=== PATIENT | male | born 1990 | race American Indian/Alaskan Native ===

== ENCOUNTER 2020-08-17 23:08 | Emergency (ER) | payer SELFPAY ==
[2020-08-18] MEDS ORDERED: ACETAMINOPHEN 325 MG TAB PO ONE (10:05)
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
[2020-08-18 10:25] VITALS: BP 128/70
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
== END 2020-08-18 11:24 | disposition home or self-care (01) ==
LOC: ED 23:08
DX: S00.83XA Contusion of other part of head, initial encounter (principal); Z98.890 Other specified postprocedural states; X58.XXXA Exposure to other specified factors, initial encounter; Y93.89 Activity, other specified; Y92.89 Other specified places as the place of occurrence of the external cause; Y99.8 Other external cause status
CPT/HCPCS: 70450; 70486